=== PATIENT | female | born 1960 | race Caucasian/White ===

== ENCOUNTER 2017-12-03 20:14 | Emergency (ER) | payer MEDICARE ==
[2017-12-03 21:51] VITALS: RESP 18
--- NOTE | 2017-12-03 23:26 | ED ---
Weakness HPI - General Chief complaint: Weakness Stated complaint: Weakness Time Seen by Provider: 12/03/17 22:52 Source: patient, RN notes reviewed Mode of arrival: wheelchair Limitations: no limitations - History of Present Illness Initial comments: This is a 57-year-old female who presents to the emergency department with chief complaint of weakness. Patient states that she was hospitalized at [facility] on Thursday for acute CHF and COPD exacerbations. She states that she was discharged home on Thursday. Patient reports significant improvement in her breathing. She denies any shortness of breath or chest pain. She states that for the past 3 weeks she has felt weak. She states that her strength does not feel normal. She states that she does not want to get up and walk because she is afraid that she may fall, however patient denies any falling. She states that she has been bedridden for approximately 3 weeks. Patient states that she did little walking while she was hospitalized, only walking periodically to the bathroom. Patient states that she was discharged home with prescriptions for doxycycline and Medrol Dosepak however has been noncompliant. She states she has not taken her medications today because she does not want to get up and walk. Patient states that she does ambulate with a walker. She states that she has a follow-up appointment with a new primary care provider next week and states that she does not want to attend this appointment and she is nervous about falling while walking through the parking lot with her walker. She denies fevers or chills, abdominal pain, nausea or vomiting, dizziness or headache. - Related Data Allergies Allergy/AdvReac Type Severity Reaction Status Date / Time Sulfa (Sulfonamide Allergy Unknown Verified 12/03/17 21:51 Antibiotics) Review of Systems ROS Statement: Those systems with pertinent positive or pertinent negative responses have been documented in the HPI. ROS Other: All systems not noted in ROS Statement are negative. Past Medical History Past Medical History: Heart Failure, COPD Additional Past Medical History / Comment(s): chronic back pain History of Any Multi-Drug Resistant Organisms: None Reported Past Surgical History: Orthopedic Surgery, Tubal Ligation Additional Past Surgical History / Comment(s): ectopic , right knee Past Psychological History: Anxiety, Depression Smoking Status: Current some day smoker Past Alcohol Use History: None Reported Past Drug Use History: None Reported General Exam - General Exam Comments Initial Comments: General: Awake and alert, well-developed; in no apparent distress. HEENT: Head atraumatic, normocephalic. Pupils are equal, round and reactive to light. Extraocular movements intact. Oropharynx moist without erythema or exudate. Neck: Supple. Normal ROM. Cardiovascular: Regular rate and rhythm. No murmurs, rubs or gallops. Chest symmetrical. Respiratory: Lungs clear to auscultation bilaterally. No wheezes, rales or rhonchi. Normal respiratory effort with no use of accessory muscles. Musculoskeletal: Normal ROM, no tenderness, strength 5/5 bilateral upper and lower extremities. Skin: [place], warm and dry without rashes or lesions. Neurological: Alert and oriented x3. CN II-XII grossly intact. Speech is fluent and answers are appropriate. No focal neuro deficits. Psychiatric: Normal mood and affect. No overt signs of depression or anxiety noted. Limitations: no limitations Course Vital Signs 12/03/17 21:43 Temperature 97.9 F Pulse Rate 117 H Respiratory 18 Rate Blood Pressure 136/91 O2 Sat by Pulse 93 L Oximetry Medical Decision Making - Medical Decision Making This is a 49-year-old female who presents to the emergency department with chief complaint of weakness. Patient reports feeling like her strength is not normal. Denies falls. She has been recently hospitalized for COPD and CHF. Denies any shortness of breath or chest pain. Has no other complaints except for feeling weak. No focal neuro deficits. Patient reports being bedridden for the past 3 weeks. Case is discussed with attending physician Dr. Luther. Basic labs were obtained and no significant abnormalities are noted. Chest x- ray revealed no evidence for acute heart failure and no consolidation. Vital signs are stable and patient is in no acute distress. Recommended following up with primary care provider for referral to physical therapy. Patient is in agreement with plan and voices understanding. All questions were answered. She will be discharged home at this time. - Lab Data Result diagrams: 12/03/17 23:21 12/03/17 23:21 Lab Results 12/03/17 12/03/17 Range/Units 23:21 23:21 WBC 11.7 H (3.8-10.6) k/uL RBC 6.05 H (3.80-5.40) m/uL Hgb 17.2 H (11.4-16.0) gm/dL Hct 57.1 H (34.0-46.0) % MCV 94.4 (80.0-100.0) fL MCH 28.4 (25.0-35.0) pg MCHC 30.1 L (31.0-37.0) g/dL RDW 15.4 (11.5-15.5) % Plt Count 170 (150-450) k/uL Neutrophils % 67 % Lymphocytes % 22 % Monocytes % 7 % Eosinophils % 2 % Basophils % 0 % Neutrophils # 7.9 H (1.3-7.7) k/uL Lymphocytes # 2.6 (1.0-4.8) k/uL Monocytes # 0.8 (0-1.0) k/uL Eosinophils # 0.2 (0-0.7) k/uL Basophils # 0.0 (0-0.2) k/uL Hypochromasia Marked Poikilocytosis Slight Sodium 137 (137-145) mmol/L Potassium 4.0 (3.5-5.1) mmol/L Chloride 97 L (98-107) mmol/L Carbon Dioxide 32 H (22-30) mmol/L Anion Gap 8 mmol/L BUN 34 H (7-17) mg/dL Creatinine 0.64 (0.52-1.04) mg/dL Est GFR (CKD-EPI)AfAm >90 (>60 ml/min/1.73 sqM) Est GFR (CKD-EPI)NonAf >90 (>60 ml/min/1.73 sqM) Glucose 125 H (74-99) mg/dL Calcium 9.6 (8.4-10.2) mg/dL Total Bilirubin 1.3 (0.2-1.3) mg/dL AST 29 (14-36) U/L ALT 61 H (9-52) U/L Alkaline Phosphatase 68 (38-126) U/L Total Protein 6.8 (6.3-8.2) g/dL Albumin 3.9 (3.5-5.0) g/dL - Radiology Data Radiology results: report reviewed Chest x-ray impression: There is subsegmental atelectasis bilaterally. No heart failure. Disposition Clinical Impression: Weakness Disposition: HOME SELF-CARE Condition: Good Instructions: Weakness (ED) Additional Instructions: As discussed, please follow-up with primary care physician for referral to physical therapy. Please follow up with primary care provider within 1-2 days. Return to emergency department if symptoms should worsen or any concerns arise. Is patient prescribed a controlled substance at d/c from ED?: No Referrals: None,Stated [Primary Care Provider] - 1-2 days Time of Disposition: 00:16
[2017-12-03 23:31] LABS: Basophils % (A) 0 %; Eosinophils # (A) 0.2 k/uL (0-0.7); Eosinophils % (A) 2 %; HCT 57.1 % (34.0-46.0); HGB 17.2 gm/dL (11.4-16.0); Hypochromasia Marked; Lymphocytes # (A) 2.6 k/uL (1.0-4.8); Lymphocytes % (A) 22 %; MCH 28.4 pg (25.0-35.0); MCHC 30.1 g/dL (31.0-37.0); MCV 94.4 fL (80.0-100.0); Mean Platelet Volume 7.8; Monocytes # (A) 0.8 k/uL (0-1.0); Monocytes % (A) 7 %; Neutrophils # (A) 7.9 k/uL (1.3-7.7); Neutrophils % (A) 67 %; Platelet Count 170 k/uL (150-450); Poikilocytosis Slight; RBC 6.05 m/uL (3.80-5.40); RDW 15.4 % (11.5-15.5); WBC 11.7 k/uL (3.8-10.6)
--- NOTE | 2017-12-03 23:42 | XR ---
EXAMINATION TYPE: XR chest 2V DATE OF EXAM: 12/03/2017 COMPARISON: NONE HISTORY: Weakness TECHNIQUE: Frontal and lateral views of the chest are obtained. FINDINGS: There is some linear density in the right middle lobe. The other lung dawson are clear of consolidation. There is no heart failure. Costophrenic angles are clear. Bony thorax is intact. There is some linear density in the left midlung. IMPRESSION: There is subsegmental atelectasis bilaterally. No heart failure.
[2017-12-03 23:44] LABS: Glucose 125 mg/dL (74-99)
[2017-12-03 23:45] LABS: ALT 61 U/L (9-52); AST 29 U/L (14-36); Albumin 3.9 g/dL (3.5-5.0); Alkaline Phosphatase 68 U/L (38-126); Anion Gap 8 mmol/L; Blood Urea Nitrogen 34 mg/dL (7-17); Calcium 9.6 mg/dL (8.4-10.2); Carbon Dioxide 32 mmol/L (22-30); Chloride 97 mmol/L (98-107); Sodium 137 mmol/L (137-145); Total Bilirubin 1.3 mg/dL (0.2-1.3); Total Protein 6.8 g/dL (6.3-8.2)
[2017-12-04 00:26] VITALS: BP 141/75; PULSE 79; TEMP 98.2
== END 2017-12-04 00:26 | disposition home or self-care (01) ==
LOC: EC 20:14
DX: R53.1 Weakness (principal); I50.9 Heart failure, unspecified; F17.200 Nicotine dependence, unspecified, uncomplicated; Z88.2 Allergy status to sulfonamides
CPT/HCPCS: 36415; 71046; 80053; 85025; 99285